=== PATIENT | female | born 2000 | race Caucasian/White ===

== ENCOUNTER 2021-02-11 15:57 | Day surgery (SDC) | payer OTHER, SELFPAY ==
[2021-02-11] MEDS ORDERED: hydrALAZINE 20 MG/ML VIAL SLOW IVP PRN (16:03)
[2021-02-11 16:12] VITALS: BMI 24.0
[2021-02-11 16:28] LABS: Creatinine, Urine 151.37 mg/dL (47-110)
[2021-02-11 17:04] LABS: Hemoglobin 10.1 g/dL (12.0-15.5); Mean Corpuscular HGB CONC 32.9 g/dL (32.0-36.0); Mean Corpuscular Hemoglobin 27.4 pg (27.0-33.0); Mean Corpuscular Volume 83.2 fl (81.6-98.3); Mean Platelet Volume 12.4 fl (7.4-10.4); Platelet Count 135 10x3/uL (150-450); RBC Distribution Width 12.6 % (11.5-14.5); Red Blood Cell (RBC) Count 3.69 10x6/uL (3.90-5.03); White Blood Cell (WBC) Count 8.1 10x3/uL (3.5-10.5)
[2021-02-11 17:15] LABS: ALT (SGPT) 18 U/L (8-55); AST (SGOT) 24 U/L (5-30); Albumin 2.9 g/dL (3.5-5.0); Alkaline Phosphatase 226 U/L (40-100); Anion Gap 14 mmol/L (10-20); BUN (Urea Nitrogen) 11 mg/dL (8.4-21.0); Bilirubin, Total 0.2 mg/dL (0.2-1.2); Calc. Creatinine Clearance 123 mL/min (70-130); Calcium 8.2 mg/dL (7.8-10.44); Carbon Dioxide 21 mmol/L (22-29); Chloride 107 mmol/L (98-107); Globulin 3.2 g/dL (2.4-3.5); Glucose 86 mg/dL (70-105); Potassium 4.1 mmol/L (3.5-5.1); Protein, Total 6.1 g/dL (6.0-8.3); Sodium 138 mmol/L (136-145)
== END 2021-02-11 18:40 | disposition home health service (06) ==
LOC: CSHLD/OP 15:57
PROVIDERS: ATTEND Family Medicine
DX: O99.891 Other specified diseases and conditions complicating pregnancy (principal); R03.0 Elevated blood-pressure reading, without diagnosis of hypertension; Z3A.36 36 weeks gestation of pregnancy
CPT/HCPCS: 76815; 76819; 80053; 82570; 84156; 85027; 99284

== ENCOUNTER 2021-02-14 11:41 | Outpatient (CLI) | payer OTHER, SELFPAY ==
[2021-02-15 01:13] LABS: SARS-CoV-2 PCR by NAA Not Detected (NotDetected)
== END 2021-02-14 11:42 | disposition home or self-care (01) ==
LOC: CSHLAB 11:41
PROVIDERS: ATTEND Family Medicine
DX: Z20.822 Contact with and (suspected) exposure to COVID-19 (principal); O13.3 Gestational [pregnancy-induced] hypertension without significant proteinuria, third trimester
CPT/HCPCS: 87635; U0003; U0005

== ENCOUNTER 2021-02-16 23:29 | Inpatient (IN) | payer OTHER ==
[2021-02-16 23:51] VITALS: BMI 24.0
[2021-02-17] MEDS: Lactated Ringer's 1,000 ML IV SCH ×2 (00:30→18:00)
[2021-02-17] MEDS: hydrALAZINE 20 MG/ML VIAL SLOW IVP PRN ×2 (00:35→04:56)
[2021-02-17] MEDS ORDERED: Magnesium Sulfate 20 gm/500 ml 20 GM/500 ML BAG ONE ×2 (00:37→23:08)
[2021-02-17] MEDS ORDERED: Promethazine HCl 25 MG/ML VIAL IM PRN ×3 (00:42→21:11)
[2021-02-17] MEDS ORDERED: Lidocaine 1% (PF) 30 ML VIAL SC PRN (00:42)
[2021-02-17] MEDS ORDERED: hydrALAZINE 20 MG/ML VIAL SLOW IVP PRN ×2 (00:42→21:11)
[2021-02-17] MEDS ORDERED: Calcium Gluc 4.6 MEQ/10 ML (100 MG/ML) SLOW IVP PRN (00:42)
[2021-02-17] MEDS ORDERED: Ondansetron PF 4 MG/2 ML Vial IVP PRN ×3 (00:42→21:11)
[2021-02-17] MEDS ORDERED: Acetaminophen 500 MG TAB PO PRN (00:42)
[2021-02-17] MEDS ORDERED: Ibuprofen 800 MG TAB PO PRN (00:42)
[2021-02-17] MEDS ORDERED: Misoprostol 200 MCG TAB PR PRN (00:42)
[2021-02-17] MEDS ORDERED: Magnesium Sulfate 20 gm/500 ml 20 GM/500 ML BAG IVPB SCH ×2 (00:45→23:47)
[2021-02-17] MEDS ORDERED: Magnesium Sulfate 20 GM/WATER 500 ML BAG IVPB SCH (00:45)
[2021-02-17] MEDS ORDERED: NS w/ Oxytocin 30 units 500 ML IV SCH ×2 (01:13→21:30)
[2021-02-17 01:14] LABS: #Monocytes 0.7 10x3/uL (0.0-1.1); #Neutrophils 5.9 10x3/uL (1.5-8.4); %Basophils 0.3 % (0.0-2.0); %Eosinophils 0.4 % (0.0-6.0); %Lymphocytes 26.3 % (18.0-47.0); %Monocytes 7.9 % (0.0-10.0); %Neutrophils 64.6 % (40.0-75.0); Hemoglobin 9.9 g/dL (12.0-15.5); Mean Corpuscular Hemoglobin 27.4 pg (27.0-33.0); Mean Corpuscular Volume 83.1 fl (81.6-98.3); Mean Platelet Volume 13.2 fl (7.4-10.4); RBC Distribution Width 12.6 % (11.5-14.5); Red Blood Cell (RBC) Count 3.61 10x6/uL (3.90-5.03); White Blood Cell (WBC) Count 9.1 10x3/uL (3.5-10.5)
[2021-02-17 01:15] LABS: Platelet Count 144 10x3/uL (150-450)
[2021-02-17] MEDS: Misoprostol 100 MCG TAB VAG SCH ×7 (01:45→21:02)
[2021-02-17 01:48] LABS: Hep B Surf Ag Non-Reactive S/CO (NonReactive); Syphilis Antibody Nonreactive (Nonreactive); Syphilis Antibody Index 0.02 S/CO (<1.00 Non-Reactive)
[2021-02-17 01:52] LABS: Creatinine, Urine 30.46 mg/dL (47-110)
[2021-02-17 01:56] LABS: HBSAg Index 0.13 S/CO (0-0.99)
[2021-02-17 02:36] LABS: ALT (SGPT) 33 U/L (8-55); AST (SGOT) 37 U/L (5-30); Albumin 3.1 g/dL (3.5-5.0); Alkaline Phosphatase 223 U/L (40-100); Anion Gap 15 mmol/L (10-20); BUN (Urea Nitrogen) 15 mg/dL (8.4-21.0); Bilirubin, Total 0.3 mg/dL (0.2-1.2); Calc. Creatinine Clearance 111 mL/min (70-130); Calcium 8.6 mg/dL (7.8-10.44); Carbon Dioxide 21 mmol/L (22-29); Chloride 105 mmol/L (98-107); Globulin 3.3 g/dL (2.4-3.5); Glucose 87 mg/dL (70-105); Potassium 3.8 mmol/L (3.5-5.1); Protein, Total 6.4 g/dL (6.0-8.3); Sodium 137 mmol/L (136-145)
[2021-02-17] MEDS ORDERED: hydrALAZINE 20 MG/ML VIAL SLOW IVP SCH (05:00)
[2021-02-17] MEDS ORDERED: Butorphanol Tartrate 1 MG/ML VIAL SLOW IVP PRN (05:49)
[2021-02-17] MEDS ORDERED: Misoprostol 100 MCG TAB PO SCH (06:00)
[2021-02-17] MEDS ORDERED: Bupivacaine 0.25% HCL 30 ML VIAL ONE (08:00)
[2021-02-17] MEDS ORDERED: Fentanyl 4 mcg/Bup 0.1% Cadd 100 ML ONE ×2 (09:17→16:01)
[2021-02-17] MEDS: Dextrose 5%-Lactated Ringers 1,000 ML IV SCH ×2 (09:22→16:11)
[2021-02-17] MEDS: NS w/ Oxytocin 30 units 500 ML ONE ×2 (10:49→21:30)
[2021-02-17] MEDS ORDERED: Acetaminophen 325 MG TAB PO PRN (11:25)
[2021-02-17] MEDS ORDERED: Naloxone HCl 0.4 mg/ml Vial IVP PRN ×2 (11:25)
[2021-02-17] MEDS ORDERED: Lactated Ringer's 500 ML IV PRN (11:25)
[2021-02-17] MEDS ORDERED: diphenhydrAMINE 50 MG/ML VIAL IVP PRN (11:25)
[2021-02-17] MEDS ORDERED: Fentanyl 4 mcg/Bupivacaine 0.1% Cassette 100 ML EPIDURAL SCH (11:30)
[2021-02-17] MEDS ORDERED: Communication Order-Pharmacy FS SCH (11:30)
[2021-02-17] MEDS ORDERED: Hydrocerin (Eucerin) Cream 120 gm Jar TOP PRN (12:34)
[2021-02-17] MEDS ORDERED: ePHEDrine Sulfate 50 MG/10 ML VIAL SLOW IVP PRN (12:34)
[2021-02-17] MEDS ORDERED: Lanolin Ointment 7 GM TUBE TOP PRN (21:11)
[2021-02-17] MEDS ORDERED: Methylergonovine 0.2 MG/ML VIAL IM PRN (21:11)
[2021-02-17] MEDS ORDERED: Benzocaine-Menthol 82.5 ML CAN TOP PRN (21:11)
[2021-02-17] MEDS ORDERED: Misoprostol 200 MCG TAB VAG PRN (21:11)
[2021-02-17] MEDS ORDERED: diphenhydrAMINE 25 MG CAP PO PRN (21:11)
[2021-02-17] MEDS ORDERED: Bisacodyl 10 MG SUPP PR PRN (21:11)
[2021-02-17] MEDS ORDERED: Milk Of Magnesia 30 ML UDCUP PO PRN (21:11)
[2021-02-17] MEDS: Ibuprofen 800 MG TAB PO SCH (22:48)
[2021-02-18] MEDS ORDERED: Magnesium Sulfate 20 gm/500 ml 20 GM/500 ML BAG IVPB SCH
[2021-02-18] MEDS: Ibuprofen 800 MG TAB PO SCH ×3 (02:25→21:22)
[2021-02-18] MEDS: Lactated Ringer's 1,000 ML IV SCH (02:32)
[2021-02-18] MEDS ORDERED: Measles/Mumps/Rubella 10 MCG/0.5 ML VIAL SC ONE (09:00)
[2021-02-18] MEDS ORDERED: Varicella virus, LIVE 0.5 ML VIAL SC ONE (09:00)
[2021-02-18] MEDS ORDERED: Adacel (T-DAP) 0.5 ML SYRINGE IM ONE (09:00)
[2021-02-18] MEDS: Docusate Calcium (SURFAK) 240 MG CAP PO SCH ×2 (09:53→19:18)
[2021-02-18] MEDS: Prenatal Vitamin 1 TAB PO SCH (09:53)
[2021-02-18] MEDS: Ferrous Sulfate 325 MG TAB PO SCH ×2 (09:53→16:38)
[2021-02-18] MEDS: Labetalol 100 MG TAB PO SCH ×2 (09:53→19:17)
[2021-02-18] MEDS ORDERED: Labetalol HCl 100 MG/20 ML VIAL SLOW IVP SCH ×2 (21:00→23:45)
[2021-02-18] MEDS: Labetalol HCl 100 MG/20 ML VIAL ONE ×2 (21:15→21:21)
[2021-02-19] MEDS: Ibuprofen 800 MG TAB PO SCH ×2 (06:48→13:57)
[2021-02-19] MEDS ORDERED: Labetalol HCl 100 MG/20 ML VIAL SLOW IVP SCH (07:30)
[2021-02-19] MEDS: Prenatal Vitamin 1 TAB PO SCH (08:58)
[2021-02-19] MEDS: Ferrous Sulfate 325 MG TAB PO SCH (08:58)
[2021-02-19] MEDS: Docusate Calcium (SURFAK) 240 MG CAP PO SCH (08:58)
[2021-02-19] MEDS ORDERED: Labetalol 100 MG TAB PO SCH (09:00)
[2021-02-19 11:16] VITALS: BP 146/70; TEMP 98.2
== END 2021-02-19 15:52 | disposition home or self-care (01) | DRG 807 ==
LOC: CSHLD/OP 23:29 → CSHLD 02-17 00:45 → CSHANTE 02-18 07:30
PROVIDERS: ADMIT Emergency Medicine; ATTEND Emergency Medicine
PROC: 10H07YZ Insertion of Other Device into Products of Conception, Via Natural or Artificial Opening (ICD-10-PCS; principal; 2021-02-17)
PROC: 10E0XZZ Delivery of Products of Conception, External Approach (ICD-10-PCS; 2021-02-17)
PROC: 4A0HXCZ Measurement of Products of Conception, Cardiac Rate, External Approach (ICD-10-PCS; 2021-02-17)
PROC: 0HQ9XZZ Repair Perineum Skin, External Approach (ICD-10-PCS; 2021-02-17)
DX: O14.14 Severe pre-eclampsia complicating childbirth (principal); Z37.0 Single live birth; Z3A.39 39 weeks gestation of pregnancy; O99.02 Anemia complicating childbirth; D64.9 Anemia, unspecified; O76 Abnormality in fetal heart rate and rhythm complicating labor and delivery; O69.81X0 Labor and delivery complicated by cord around neck, without compression, not applicable or unspecified; O70.0 First degree perineal laceration during delivery; N89.8 Other specified noninflammatory disorders of vagina
CPT/HCPCS: 36415; 51702; 80053; 82570; 83735; 84156; 85025; 86780; 86850; 86900; 86901; 87340; 99285; J0360; J0595; J2405; J2590; J3475; J7030; S0020